=== PATIENT | female | born 1965 | race Caucasian/White ===

== ENCOUNTER → 2016-08-18 | Outpatient (CLI) | payer OTHER | LOC: FIMAGING 10:48 | DX: Z12.31 Encounter for screening mammogram for malignant neoplasm of breast (principal) | CPT/HCPCS: G0202 ==

== ENCOUNTER 2016-09-20 17:28 | Emergency (ER) | payer OTHER ==
[2016-09-20 17:37] VITALS: BP 122/62; PULSE 86; RESP 18; TEMP 98; O2SAT 96
== END 2016-09-20 17:40 | disposition left against medical advice (07) ==
LOC: CED 17:28
DX: M79.89 Other specified soft tissue disorders (principal); Z53.9 Procedure and treatment not carried out, unspecified reason